=== PATIENT | male | born 1980 | race Caucasian/White ===

== ENCOUNTER 2018-05-15 00:48 | Emergency (ER) | payer BC, OTHER ==
[2018-05-15] MEDS ORDERED: ONDANSETRON 4 MG/2 ML VIAL ONE (01:06)
[2018-05-15] MEDS ORDERED: ONDANSETRON 4 MG/2 ML VIAL IVP ONE (01:07)
[2018-05-15] MEDS ORDERED: NS 1,000 ML IV ONE ×2 (01:07→01:52)
--- NOTE | 2018-05-15 03:47 | EDPHY ---
H & P Stated Complaint: POS FOOD POISON, VOMIT,DIARRHEA,ABD PAIN Time Seen by Provider: 05/15/18 01:45 HPI/ROS: Chief Complaint: Nausea vomiting and diarrhea HPI: 37-year-old male began having nausea vomiting diarrhea this evening. Patient states he ate a Kale salad with beats about 5 this evening. 7:00 a.m. You minutes of a store 5 with ground beef and vegetables. He began having nausea vomiting and loose stools at about 10:00 a.m.. He has vomited several times. The last me vomited there is a small amount of blood. Mild crampy abdominal pain. No fevers or chills. ROS: 10 systems were reviewed and were negative except those elements noted in the HPI. PMH: Denies Social History: No smoking, no alcohol, no recreational drug use Family History: non-contributory Physical Exam: Gen: Awake, Alert, No Distress HEENT: Nose: no rhinorrhea Eyes: PERRLA, EOMI Mouth: Dry mucosa Neck: Supple, no JVD Chest: nontender, lungs clear to auscultation Heart: S1, S2 normal, no murmur Abd: Soft, non-tender, no guarding Back: no CVA tenderness, no midline tenderness Ext: no edema, non-tender Skin: no rash Neuro: CN II-XII intact, Sensation grossly intact, Strength 5/5 in bilateral upper and lower extremities - Personal History Current Tetanus Diphtheria and Acellular Pertussis (TDAP): Yes - Medical/Surgical History Hx Asthma: Yes Hx Chronic Respiratory Disease: No Hx Diabetes: No Hx Cardiac Disease: No Hx Renal Disease: No Hx Cirrhosis: No Hx Alcoholism: No Hx HIV/AIDS: No Hx Splenectomy or Spleen Trauma: No Other PMH: DENIES - Social History Smoking Status: Never smoked Constitutional: Initial Vital Signs Temperature (C) 36.7 C 05/15/18 00:52 Heart Rate 72 05/15/18 00:52 Respiratory Rate 16 05/15/18 00:52 Blood Pressure 109/74 05/15/18 00:52 O2 Sat (%) 98 05/15/18 00:52 O2 Delivery Mode Room Air Allergies/Adverse Reactions: No Known Allergies Allergy (Unverified 05/15/18 00:56) Home Medications: Medication Instructions Recorded NK [No Known Home Meds] 05/15/18 Medical Decision Making ED Course/Re-evaluation: 2-year-old male with nausea vomiting diarrhea. He has a soft benign abdomen. Will give him Zofran and fluids and reassess. Patient is feeling much better after 2 L of fluids and some Zofran. Abdomen remains soft and benign. He is tolerating fluids. He is asking to go home. Will discharge with follow-up with primary care physician. - Data Points Medications Given: Discontinued Medications Sodium Chloride (Ns) 1,000 mls @ 0 mls/hr IV ONCE ONE; Wide Open PRN Reason: Protocol Stop: 05/15/18 01:08 Last Admin: 05/15/18 01:10 Dose: 1,000 mls Sodium Chloride (Ns) 1,000 mls @ 0 mls/hr IV ONCE ONE; Wide Open PRN Reason: Protocol Stop: 05/15/18 01:53 Last Admin: 05/15/18 01:53 Dose: 1,000 mls Ondansetron HCl (Zofran) 4 mg IVP EDNOW ONE Stop: 05/15/18 01:08 Last Admin: 05/15/18 01:10 Dose: 4 mg Departure - Departure Disposition: Home, Routine, Self-Care Clinical Impression: Nausea vomiting and diarrhea, Dehydration, Diarrhea Condition: Good Instructions: Acute Nausea and Vomiting (ED), Acute Diarrhea (ED), Dehydration (ED), Ondansetron (By mouth) Additional Instructions: Avoid caffeine today. Make sure to drink plenty of clear liquids. I would eat a bland diet for most of the day. Pedialyte is the best option for hydration. You may take Zofran as needed for nausea or vomiting. Return to the emergency department for uncontrolled nausea vomiting, fevers or chills, uncontrolled diarrhea, fainting, or any other concerns. Referrals: Yue Stratton MD [Primary Care Provider] - As per Instructions
[2018-05-15] MEDS ORDERED: ONDANSETRON 4MG PREPACK#2 BTL TAKEHOME ONE (03:52)
[2018-05-15 04:24] VITALS: BP 121/82
== END 2018-05-15 04:23 | disposition home or self-care (01) ==
DX: R11.2 Nausea with vomiting, unspecified (principal); R19.7 Diarrhea, unspecified; E86.9 Volume depletion, unspecified
CPT/HCPCS: 96374; J2405